=== PATIENT | female | born 1930 | race Caucasian/White ===

== ENCOUNTER 2020-01-29 09:09 | Emergency (ER) | payer MEDICARE, BC ==
[2020-01-29] MEDS ORDERED: Sodium Chloride 0.9% 10 ML Syringe FLUSH PRN (09:25)
--- NOTE | 2020-01-29 09:32 | EDM.PDOC ---
ED HPI GENERAL MEDICAL PROBLEM - General Chief Complaint: Neuro Symptoms/Deficits Stated Complaint: POSSIBLE STROKE Time Seen by Provider: 01/29/20 09:27 Source of Information: Reports: Patient, Family History Limitations: Reports: No Limitations - History of Present Illness INITIAL COMMENTS - FREE TEXT/NARRATIVE: pt was brought to the er for slurred speech and difficulty coordinating her walking and having difficulty getting out of bed. 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 Onset: Today, Other (pt got up this am with the symptoms. ) Duration: Hour(s): Location: Reports: Head, Generalized Associated Symptoms: Reports: Weakness - Related Data Allergies Allergy/AdvReac Type Severity Reaction Status Date / Time No Known Allergies Allergy Verified 01/29/20 09:27 Home Meds: Home Meds Calcium Acetate 1 gm MC 01/29/20 [History] Cholecalciferol High Potency 1 capful PO DAILY 01/29/20 [History] Clopidogrel [Plavix] 75 mg PO DAILY 01/29/20 [History] Losartan [Cozaar] 100 mg PO DAILY 01/29/20 [History] Metoprolol Tartrate 50 mg PO BID 01/29/20 [History] Multivit,Iron,Minerals/Lutein [Essential Balance] 1 each PO DAILY 01/29/20 [History] Vitamin B Complex 1 each PO DAILY 01/29/20 [History] amLODIPine [Norvasc] 10 mg PO DAILY 01/29/20 [History] dilTIAZem HCL [Cardizem] 120 mg PO BID 01/29/20 [History] hydroCHLOROthiazide [Hydrochlorothiazide] 25 mg PO DAILY 01/29/20 [History] metFORMIN [Glucophage XR] 500 mg PO DAILY 01/29/20 [History] ED ROS GENERAL - Review of Systems Review Of Systems: See Below Constitutional: Reports: Weakness HEENT: Reports: No Symptoms Respiratory: Reports: No Symptoms Cardiovascular: Reports: No Symptoms Endocrine: Reports: No Symptoms GI/Abdominal: Reports: No Symptoms : Reports: No Symptoms Musculoskeletal: Reports: No Symptoms Skin: Reports: No Symptoms Neurological: Reports: Trouble Speaking, Difficulty Walking, Other (pt is having difficulty coordinatin her lower extremities to walk. ) ED EXAM, NEURO - Physical Exam Exam: See Below Text/Narrative:: pt arrived with slrred speech and facial weakness. She is moving all extremities, she is having more difficulty coordinating Exam Limited By: No Limitations General Appearance: Alert, No Apparent Distress, Anxious, Other (pupils equal and reactive She has a persistent gaze to the rt) Ears: Normal TMs Nose: Normal Inspection Throat/Mouth: Normal Inspection, Other (pt does have a facial droop, her smile is symetrical. ) Neck: Normal Inspection Respiratory/Chest: No Respiratory Distress Cardiovascular: Regular Rate, Rhythm GI/Abdominal: Soft, Non-Tender (Female) Exam: Deferred Rectal (Female) Exam: Deferred Neurological: Alert, Oriented x 3, Other ( speech is slurred.) Back Exam: Normal Inspection Extremities: Normal Inspection, Other (pt has residual weakness from her previous stroke. ) Psychiatric: Anxious Skin Exam: Warm Course - Vital Signs Last Recorded V/S: Last Vital Signs Temp 35.9 C L 01/29/20 09:20 Pulse 87 01/29/20 15:10 Resp 14 01/29/20 15:10 BP 141/71 H 01/29/20 15:10 Pulse Ox 94 L 01/29/20 15:10 - Orders/Labs/Meds Labs: Laboratory Tests 01/29/20 01/29/20 01/29/20 Range/Units 09:28 09:28 10:26 WBC 9.3 (4.5-11.0) K/uL RBC 4.99 (3.30-5.50) M/uL Hgb 14.5 (12.0-15.0) g/dL Hct 45.2 (36.0-48.0) % MCV 91 (80-98) fL MCH 29 (27-31) pg MCHC 32 (32-36) % Plt Count 364 (150-400) K/uL Neut % (Auto) 65 (36-66) % Lymph % (Auto) 24 (24-44) % [place] % (Auto) 8 H (2-6) % Eos % (Auto) 3 (2-4) % Baso % (Auto) 0 (0-1) % Sodium 139 L (140-148) mmol/L Potassium 3.8 (3.6-5.2) mmol/L Chloride 100 (100-108) mmol/L Carbon Dioxide 28 (21-32) mmol/L Anion Gap 14.8 H (5.0-14.0) mmol/L BUN 13 (7-18) mg/dL Creatinine 0.9 (0.6-1.0) mg/dL Est Cr Clr Drug Dosing 32.60 mL/min Estimated GFR (MDRD) 59 L (>60) Glucose 167 H (74-106) mg/dL Calcium 9.5 (8.5-10.1) mg/dL Total Bilirubin 0.4 (0.2-1.0) mg/dL AST 14 L (15-37) U/L ALT 23 (12-78) U/L Alkaline Phosphatase 89 (46-116) U/L Total Protein 7.0 (6.4-8.2) g/dL Albumin 3.6 (3.4-5.0) g/dL Globulin 3.4 (2.3-3.5) g/dL Albumin/Globulin Ratio 1.1 L (1.2-2.2) Urine Color Yellow (YELLOW) Urine Appearance Slightly cloudy A (CLEAR) Urine pH 7.0 (5.0-8.0) Ur Specific [place] 1.020 (1.008-1.030) Urine Protein 30 H (NEGATIVE) mg/dL Urine Glucose (UA) Negative (NEGATIVE) mg/dL Urine Ketones Negative (NEGATIVE) mg/dL Urine Occult Blood Negative (NEGATIVE) Urine Nitrite Negative (NEGATIVE) Urine Bilirubin Negative (NEGATIVE) Urine Urobilinogen 0.2 (0.2-1.0) EU/dL Ur Leukocyte Esterase Small (NEGATIVE) Urine RBC Not seen (0-5) Urine WBC 5-10 H (0-5) Ur Epithelial Cells Few Amorphous Sediment Not seen Urine Bacteria Few Urine Mucus Not seen Meds: Medications Discontinued Medications Generic Name Dose Route Start Last Admin Trade Name Freq PRN Reason Stop Dose Admin Sodium Chloride 100 mls @ 3 mls/sec 01/29/20 10:45 01/29/20 11:11 Normal Saline IV 4 mls/sec ASDIRECTED CJ Administration Iopamidol 100 ml 01/29/20 10:45 01/29/20 11:12 Isovue-370 (76%) IV 100 ml . DIRECTED CJ Administration Sodium Chloride 10 ml 01/29/20 09:25 Saline Flush FLUSH ASDIRECTED PRN Keep Vein Open Sodium Chloride 10 ml 01/29/20 10:34 12/14/20 11:10 Saline Flush FLUSH 12/14/20 10:35 10 ml ONETIME ONE Administration - Re-Assessments/Exams Free Text/Narrative Re-Assessment/Exam: 01/29/20 14:38 pt had a neg head scan, cta did not reveal a critical clot or stenosis. There is alot of plaque present. Discussion was held with the pt and daughter and she and the family did not wish her to go to [place]. Departure - Departure Time of Disposition: 14:25 Disposition: Home, Self-Care 01 Condition: Fair Clinical Impression: CVA (cerebral vascular accident), Acute CVA (cerebrovascular accident), Thyroid nodule greater than or equal to 1 cm in diameter incidentally noted on imaging study - Discharge Information Instructions: Supporting Someone After a Stroke Referrals: Zeinab Hopkins DO [Primary Care Provider] - Forms: ED Department Discharge Care Plan Goals: rtc tomorrow for a head MRI. continue same meds, rtc if she should get alot worse, appt with zeinab jain or matthew, the reportof the head MRI. Pt has decided that she does not wish to go to [place]. She was to be cared for in a conservative manner. Us did reveal a nodule on the left lobe of the thyroid. discharge planning is working with the pt regarding equipment. Sepsis Event Note (ED) - Evaluation Sepsis Screening Result: No Definite Risk
--- NOTE | 2020-01-29 09:53 | CT ---
Head wo Cont CLINICAL HISTORY: Slurred speech, previous left-sided stroke COMPARISON: None TECHNIQUE: Transverse scans were obtained from the base of the skull through the vertex without IV contrast on a multislice, multidetector CT scanner. Auto dosage reduction and iterative reconstruction techniques employed. FINDINGS: Patient has had a previous large ischemic infarct in the left MCA distribution. This also extends into the left posterior cerebral artery distribution. This appears remote. There is a small area of low-attenuation in the left basal ganglia just lateral to the head of the caudate nucleus. There are scattered the areas of low attenuation in the periventricular and subcortical white matter. There is no mass effect, hemorrhage, or extraaxial collection. The basal cisterns and sulci over the convexities are prominent. The ventricles are prominent. IMPRESSION: Previous large ischemic infarct in the left cerebral hemisphere. Questionable area of low attenuation in the left basal ganglia may be subacute or chronic Moderate atrophic change Moderate chronic ischemic microvascular changes
[2020-01-29] MEDS ORDERED: Iopamidol 755 Mg/ML 100 ML Bottle IV SCH (10:45)
[2020-01-29] MEDS ORDERED: Sodium Chloride 0.9% 100 ML IV SCH (10:45)
[2020-01-29] MEDS: Sodium Chloride 0.9% 10 ML Syringe FLUSH ONE ×2 (10:46→11:10)
--- NOTE | 2020-01-29 13:10 | CT ---
Ang Head CLINICAL HISTORY: Slurred speech. COMPARISON: None TECHNIQUE: Multiple volume rendered and MIP 3D reconstructions were generated from source images obtained on a spiral scanner before and after intravenous iodinated contrast enhancement Auto dosage reduction and iterative reconstruction techniques employed. FINDINGS: Internal carotid arteries: There is significant hard plaque in the carotid siphons bilaterally. Anterior cerebral arteries: Normal course and contour. The anterior communicating artery is patent Middle cerebral arteries: There is some mildly stenotic plaque in the proximal left middle cerebral artery. There are 2 areas of moderate stenosis in the branching MCA in the mid temporal lobe region. There are some small vessel cutoffs. This is all likely of remote chronology. There is some mild segmental stenoses in the right middle cerebral artery distribution. Posterior cerebral arteries: There is a severe stenosis at the origin of the left middle cerebral artery. Neither posterior communicating artery is visualized. Vertebral/basilar arteries: There is moderate hard plaque in both distal vertebral arteries causing some mild stenoses. There is some mild stenosis at the distal basilar artery. IMPRESSION: Moderate hard and soft plaque in the vertebrobasilar arteries and carotid siphons Mild and moderate stenotic plaques in the left middle cerebral artery distribution with some small vessel cut off. This is likely of remote chronology. Mild stenoses in the right middle cerebral artery distribution Severe stenosis in the proximal left posterior cerebral artery
--- NOTE | 2020-01-29 14:20 | US ---
Carotid Comp INDICATION: history of carotid stenosis. COMPARISON: None. FINDINGS RIGHT: There is moderate to severe plaque in the right carotid bifurcation. Peak systolic velocity in the internal carotid artery is 153 cm/sec. Diastolic velocity is 44 cm/sec. ICA/CCA ratio is 2.7. LEFT: There is moderate plaque in the left carotid bifurcation. Peak systolic velocity in the internal carotid artery is 57 cm/sec. Diastolic velocity is 16 cm/sec. ICA/CCA ratio is 1.0. External carotid arteries are patent bilaterally. Antegrade flow in both vertebral arteries. There is a large heterogeneous nodule in the left lobe of the thyroid measuring 3.6 x 3.5 cm. IMPRESSION: Moderate to severe plaque in the right carotid bifurcation with ICA stenosis. Right ICA stenosis is estimated to be between 50 and 69% Large heterogeneous left lobe thyroid nodule. This should be evaluated with dedicated thyroid ultrasound NASCET criteria used.
--- NOTE | 2020-02-03 06:46 | LETTER ---
02/01/2020 RE: DIONICIO BURCH : 1930 [address] [place] [address] Dear Dionicio, You recently were at the emergency room with some facial deviation, slurring of your speech and looking to the right side. At that point, a CAT scan of the head was obtained and also looked at the vessels, and nothing showed a critical stenosis in the vessels. You have returned for an MRI in a delayed way to see if you might have evidence of a stroke, and in looking at this, there is evidence of a lot of old changes, but no distinct area of a subacute infarct or stroke. If you have questions regarding this report, feel free to contact me. I know you are following up with Dr. Hopkins. Thank you. Sincerely, /[id number]
== END 2020-01-29 15:20 | disposition home or self-care (01) ==
LOC: JP.ED 09:09
DX: I63.9 Cerebral infarction, unspecified (principal); E04.1 Nontoxic single thyroid nodule
CPT/HCPCS: 36415; 70450; 70450-26; 70496; 70496-26; 80053; 81001; 85025; 87086; 93005; 93010; 93880; 93880-26; 99284; 99285-25; Q9967